=== PATIENT | male | born 1940 | race African-American/Black ===

== ENCOUNTER 2017-04-25 12:41 | Emergency (ER) | payer OTHER ==
[~2017-04-25] VITALS: Ht 177.8 cm; Wt 95.0 kg
[2017-04-25 14:38] LABS: HEMATOCRIT. 49.2 % (42.0-52.0); HEMOGLOBIN. 16.9 g/dL (14.0-18.0); MEAN CORPUSCULAR HEMOGLOBIN 33.1 pg (28.0-32.0); MEAN CORPUSCULAR VOLUME 96.1 fL (80.0-94.0); RED BLOOD CELL COUNT 5.12 mill/uL (4.7-6.1); RED CELL DISTRIBUTION WIDTH 13.5 % (11.6-14.6)
[2017-04-25 14:53] LABS: CARBON DIOXIDE 28 mEq/L (21-32); CHLORIDE 107 mEq/L (98-107); ETHANOL BLOOD < 10 mg/dL
[2017-04-25 16:36] VITALS: BP 134/83
== END 2017-04-25 16:39 | disposition home or self-care (01) ==
LOC: ER 12:58
DX: R56.9 Unspecified convulsions (principal); G20 Parkinson's disease; F02.80 Dementia in other diseases classified elsewhere, unspecified severity, without behavioral disturbance, psychotic disturbance, mood disturbance, and anxiety; B19.20 Unspecified viral hepatitis C without hepatic coma; H40.9 Unspecified glaucoma; Z86.73 Personal history of transient ischemic attack (TIA), and cerebral infarction without residual deficits
CPT/HCPCS: 36415; 70450; 71010; 80053; 85025; 99285; G0482

== ENCOUNTER 2022-09-21 17:58 | Emergency (ER) | payer OTHER ==
[~2022-09-21] VITALS: Ht 188 cm; Wt 100.0 kg
[2022-09-21 18:01] VITALS: BP 0/0
== END 2022-09-21 21:05 ==
LOC: ER 18:54
DX: I46.9 Cardiac arrest, cause unspecified (principal); F03.90 Unspecified dementia, unspecified severity, without behavioral disturbance, psychotic disturbance, mood disturbance, and anxiety; H40.9 Unspecified glaucoma
CPT/HCPCS: 31500; 99285